=== PATIENT | male | born 1945 | race Caucasian/White ===

== ENCOUNTER 2019-09-15 15:45 | Inpatient (IN) | payer SELFPAY ==
[~2019-09-15] VITALS: Ht 172.7 cm; Wt 65.8 kg
[2019-09-15] MEDS ORDERED: LEVOFLOXACIN 750MG PREMIX 150 ML IV ONE (16:15)
[2019-09-15] MEDS ORDERED: SODIUM CHLORIDE 0.9% 1000ML BAG (SEPSIS BOLUS) IV ONE (16:15)
[2019-09-15] MEDS ORDERED: ACETAMINOPHEN 325MG TABLET PO ONE (16:30)
[2019-09-15 16:38] LABS: HEMATOCRIT. 34.1 % (42.0-52.0); HEMOGLOBIN. 11.8 g/dL (14.0-18.0); MEAN CORPUSCULAR HEMOGLOBIN 29.4 pg (28.0-32.0); MEAN CORPUSCULAR VOLUME 85.1 fL (80.0-94.0); MEAN PLATELET VOLUME 8.8 fl (7.4-10.4); PLATELET 81 x1000/uL (130-400); RED CELL DISTRIBUTION WIDTH 17.9 % (11.6-14.6)
[2019-09-15 16:44] LABS: CHLORIDE 102 mEq/L (98-107)
[2019-09-15 16:45] LABS: INR 0.9; PROTHROMBIN TIME 9.8 sec (9.6-11.0)
[2019-09-15 16:49] LABS: CLARITY URINE CLOUDY (CLEAR); COLOR URINE YELLOW (YELLOW); KETONES URINE NEGATIVE (NEGATIVE); LEUKOCYTE ESTERASE URINE 3+ (NEGATIVE); NITRITE URINE NEGATIVE (NEGATIVE); OCCULT BLOOD URINE 3+ (NEGATIVE); PH URINE 5.5 (4.5-8.0); PROTEIN URINE 2+ (NEGATIVE); SPECIFIC GRAVITY URINE 1.014 (1.005-1.030)
[2019-09-15 17:54] LABS: PLATELET ESTIMATE DECREASED
[2019-09-15] MEDS ORDERED: POTASSIUM CHLORIDE 20MEQ TABLET SR PO ONE (18:30)
[2019-09-15] MEDS ORDERED: NOREPINEPHRINE 4 MG in DEXT 5% WATER 246 ML IV ONE (20:30)
[2019-09-15] MEDS ORDERED: DOCUSATE SODIUM 100MG CAPSULE PO PRN (20:45)
[2019-09-15] MEDS ORDERED: CLONIDINE 0.1MG TABLET PO PRN (20:45)
[2019-09-15] MEDS ORDERED: DEXTROSE 50% WATER 50ML SYRINGE IV PRN (20:45)
[2019-09-15] MEDS ORDERED: LEVOFLOXACIN 500MG PREMIX 100 ML IV SCH (20:45)
[2019-09-15] MEDS ORDERED: IPRATROPIUM/ALBUTEROL 0.5-3(2.5)MG/3ML NEB NEB PRN (20:45)
[2019-09-15] MEDS ORDERED: VASOPRESSIN 10 UNIT in SODIUM CHLORIDE 0.9% 99.5 ML IV PRN (20:45)
[2019-09-15] MEDS ORDERED: GUAIFENESIN 200MG/10ML SUGAR FREE UDC PO PRN (20:45)
[2019-09-15] MEDS ORDERED: CEFEPIME 1,000 MG in DEXTROSE 5% WATER 50 ML IV SCH (20:45)
[2019-09-15] MEDS ORDERED: NITROGLYCERIN 0.4MG TABLET SL SL PRN (20:45)
[2019-09-15] MEDS ORDERED: KETOROLAC 15MG/ML VIAL IV PRN (20:45)
[2019-09-15] MEDS ORDERED: ONDANSETRON HCL 4MG/2ML INJ IV PRN (20:45)
[2019-09-15] MEDS ORDERED: NOREPINEPHRINE 4MG/250ML PMX 250 ML IV ONE (20:45)
[2019-09-15] MEDS ORDERED: MAGNESIUM/ALUMINUM HYDROXIDE/SIMETHICONE 30ML UDC PO PRN (20:45)
[2019-09-15 22:00] LABS: *BARBITURATES SCREEN URINE NEGATIVE (NEGATIVE)
[2019-09-15] MEDS ORDERED: VANCOMYCIN 1 G PREMIX 200 ML IV SCH (22:00)
[2019-09-15] MEDS ORDERED: NOREPINEPHRINE 4MG/250ML PMX 250 ML IV PRN (22:00)
[2019-09-15 22:01] LABS: *AMPHETAMINES SCREEN URINE NEGATIVE (NEGATIVE); *BENZODIAZEPINES SCREEN URINE NEGATIVE (NEGATIVE); *COCAINE SCREEN URINE NEGATIVE (NEGATIVE); METHADONE URINE SCREEN NEGATIVE (NEGATIVE); OPIATES URINE SCREEN NEGATIVE (NEGATIVE)
[2019-09-15 22:02] LABS: CANNABINOID URINE SCREEN NEGATIVE (NEGATIVE); PHENCYCLIDINE URINE SCREEN NEGATIVE (NEGATIVE)
[2019-09-15 22:15] LABS: T4 FREE 1.22 ng/dL (0.76-1.46)
[2019-09-15 22:40] LABS: VITAMIN B12 SERUM 255 pg/mL (211-911)
[2019-09-15 22:44] LABS: CREATINE KINASE 451 IU/L (39-308)
[2019-09-15 22:45] LABS: FOLIC ACID (FOLATE) SERUM > 20.00 ng/mL (>5.38)
[2019-09-15 23:07] VITALS: BP 94/51
[2019-09-15 23:12] VITALS: BP 95/50
[2019-09-15 23:26] VITALS: BP 110/65
[2019-09-15] MEDS ORDERED: NOREPINEPHRINE 4 MG in DEXTROSE 5% WATER 250 ML IV PRN (23:30)
[2019-09-15 23:41] VITALS: BP 113/65
[2019-09-15 23:56] VITALS: BP 111/65
[2019-09-16] VITALS (63 sets, daily range): BP systolic 94–168; BP diastolic 25–125
[2019-09-16] MEDS ORDERED: FILGRASTIM-TBO 300 MCG/0.5 ML SYRINGE SQ SCH
[2019-09-16] MEDS ORDERED: SODIUM CHLORIDE 0.9% 1,000 ML IV NR
[2019-09-16] MEDS ORDERED: POTASSIUM CHLORIDE 20MEQ TABLET SR PO NR
[2019-09-16] MEDS: CEFEPIME 1,000 MG in DEXTROSE 5% WATER 50 ML IV SCH ×3 (00:25→23:27)
[2019-09-16] MEDS ORDERED: PHENYLEPHRINE 40 MG in DEXT 5% WATER 246 ML IV PRN (00:45)
[2019-09-16] MEDS: BLOOD SUGAR DIAGNOSTIC STRIP TEST SCH ×5 (00:55→20:15)
[2019-09-16] MEDS: SODIUM CHLORIDE 0.9% 1,000 ML IV SCH ×4 (02:05→21:04)
[2019-09-16] MEDS: OSELTAMIVIR 75MG CAPSULE PO SCH ×3 (02:05→20:14)
[2019-09-16] MEDS ORDERED: KCL 20MEQ/100ML PREMIX 100 ML IV NR (04:00)
[2019-09-16] MEDS ORDERED: VANCOMYCIN 1250MG in DEXTROSE 5% WATER 250ML IV SCH (06:00)
[2019-09-16 06:10] LABS: HEMATOCRIT. 27.7 % (42.0-52.0); HEMOGLOBIN. 9.6 g/dL (14.0-18.0); MEAN CORPUSCULAR HEMOGLOBIN 29.8 pg (28.0-32.0); MEAN CORPUSCULAR VOLUME 86.3 fL (80.0-94.0); MEAN PLATELET VOLUME 9.2 fl (7.4-10.4); PLATELET 68 x1000/uL (130-400); RED BLOOD CELL COUNT 3.21 mill/uL (4.7-6.1); RED CELL DISTRIBUTION WIDTH 17.9 % (11.6-14.6)
[2019-09-16 06:44] LABS: CHLORIDE 110 mEq/L (98-107)
[2019-09-16 06:55] LABS: CREATINE KINASE 369 IU/L (39-308)
[2019-09-16 06:58] LABS: CREATINE KINASE MB FRACTION 1.8 ng/mL (0.5-3.6)
[2019-09-16] MEDS: INSULIN LISPRO 100 UNITS/ML SUBCUT SCH ×5 (07:55→20:15)
[2019-09-16 08:31] LABS: PLATELET ESTIMATE DECREASED
[2019-09-16] MEDS: ASCORBIC ACID 500 MG TABLET PO SCH ×2 (08:31→20:14)
[2019-09-16] MEDS: FAMOTIDINE 20MG TABLET PO SCH ×2 (08:31→20:15)
[2019-09-16] MEDS: ZINC SULFATE 220 MG ( 50 ) CAPSULE PO SCH (08:31)
[2019-09-16] MEDS: ENOXAPARIN 40MG/0.4ML SYR SUBCUT SCH (08:33)
[2019-09-16] MEDS: ZOLPIDEM TARTRATE 5MG TABLET PO PRN (20:15)
[2019-09-17] VITALS (45 sets, daily range): BP systolic 122–193; BP diastolic 67–111
[2019-09-17] MEDS: ACETAMINOPHEN 325MG TABLET PO PRN ×2 (02:53→23:32)
[2019-09-17] MEDS: SODIUM CHLORIDE 0.9% 1,000 ML IV SCH ×4 (03:36→23:58)
[2019-09-17 05:52] LABS: BASOPHILS % 0.2 % (0.0-2.0); EOSINOPHILS % 1.2 % (0.0-5.0); HEMATOCRIT. 27.9 % (42.0-52.0); HEMOGLOBIN. 9.5 g/dL (14.0-18.0); LYMPHOCYTES % 10.3 % (20.0-50.0); MEAN CORPUSCULAR HEMOGLOBIN 29.4 pg (28.0-32.0); MEAN PLATELET VOLUME 9.1 fl (7.4-10.4); MONOCYTES % 3.1 % (2.0-8.0); NEUTROPHILS % 85.2 % (40.0-76.0); PLATELET 75 x1000/uL (130-400); RED BLOOD CELL COUNT 3.24 mill/uL (4.7-6.1); RED CELL DISTRIBUTION WIDTH 18.4 % (11.6-14.6)
[2019-09-17 06:13] LABS: CHLORIDE 115 mEq/L (98-107)
[2019-09-17] MEDS ORDERED: POTASSIUM CHLORIDE 20MEQ/PACKET PO SCH (07:00)
[2019-09-17 07:19] LABS: PHOSPHORUS 2.2 mg/dL (2.5-4.9)
[2019-09-17] MEDS: BLOOD SUGAR DIAGNOSTIC STRIP TEST SCH ×4 (07:50→21:00)
[2019-09-17] MEDS: INSULIN LISPRO 100 UNITS/ML SUBCUT SCH ×4 (08:20→21:00)
[2019-09-17] MEDS: ENOXAPARIN 40MG/0.4ML SYR SUBCUT SCH (09:00)
[2019-09-17] MEDS ORDERED: KCL 20MEQ/100ML PREMIX 100 ML IV SCH (09:00)
[2019-09-17] MEDS: ASCORBIC ACID 500 MG TABLET PO SCH ×2 (09:15→21:52)
[2019-09-17] MEDS: FAMOTIDINE 20MG TABLET PO SCH ×2 (09:16→21:51)
[2019-09-17] MEDS: ZINC SULFATE 220 MG ( 50 ) CAPSULE PO SCH (09:16)
[2019-09-17] MEDS: OSELTAMIVIR 75MG CAPSULE PO SCH ×2 (09:16→21:51)
[2019-09-17] MEDS ORDERED: POTASSIUM PHOS,M-BASIC-D-BASIC 20 MMOL in DEXT 5% WATER 243.3333 ML IV NR (11:00)
[2019-09-17] MEDS: CEFEPIME 1,000 MG in DEXTROSE 5% WATER 50 ML IV SCH ×2 (12:31→23:59)
[2019-09-17] MEDS ORDERED: DIATR MEGLU/DIATRIZOATE SOLN 30ML PO SCH (13:00)
[2019-09-17] MEDS: ZOLPIDEM TARTRATE 5MG TABLET PO PRN (21:52)
[2019-09-17] MEDS ORDERED: IOHEXOL-300 100 ML BOTTLE ONE (22:43)
[2019-09-18] VITALS (30 sets, daily range): BP systolic 107–145; BP diastolic 53–84
[2019-09-18] MEDS ORDERED: SODIUM CHLORIDE 0.9% 1,000 ML IV NR (01:45)
[2019-09-18] MEDS: DILTIAZEM HCL 30MG TABLET PO SCH ×4 (03:09→21:12)
[2019-09-18 05:19] LABS: HEMOGLOBIN. 10.6 g/dL (14.0-18.0); MEAN CORPUSCULAR HEMOGLOBIN 29.3 pg (28.0-32.0); MEAN CORPUSCULAR VOLUME 85.8 fL (80.0-94.0); MEAN PLATELET VOLUME 8.7 fl (7.4-10.4); PLATELET 78 x1000/uL (130-400); RED BLOOD CELL COUNT 3.61 mill/uL (4.7-6.1); RED CELL DISTRIBUTION WIDTH 18.2 % (11.6-14.6)
[2019-09-18 05:28] LABS: CHLORIDE 113 mEq/L (98-107)
[2019-09-18 05:34] LABS: PHOSPHORUS 2.4 mg/dL (2.5-4.9)
[2019-09-18] MEDS: SODIUM CHLORIDE 0.9% 1,000 ML IV SCH ×3 (06:11→19:54)
[2019-09-18] MEDS: INSULIN LISPRO 100 UNITS/ML SUBCUT SCH ×4 (07:27→21:00)
[2019-09-18] MEDS: BLOOD SUGAR DIAGNOSTIC STRIP TEST SCH ×4 (07:27→21:11)
[2019-09-18 07:31] LABS: PLATELET ESTIMATE DECREASED
[2019-09-18] MEDS: ASCORBIC ACID 500 MG TABLET PO SCH ×2 (08:14→21:12)
[2019-09-18] MEDS: FAMOTIDINE 20MG TABLET PO SCH ×2 (08:14→21:12)
[2019-09-18] MEDS: OSELTAMIVIR 75MG CAPSULE PO SCH (08:14)
[2019-09-18] MEDS: ZINC SULFATE 220 MG ( 50 ) CAPSULE PO SCH (08:14)
[2019-09-18] MEDS ORDERED: POTASSIUM CHLORIDE 20MEQ TABLET SR PO SCH (08:15)
[2019-09-18] MEDS: ENOXAPARIN 40MG/0.4ML SYR SUBCUT SCH (08:47)
[2019-09-18] MEDS ORDERED: POTASSIUM PHOS,M-BASIC-D-BASIC 30 MMOL in DEXT 5% WATER 500 ML IV SCH (10:00)
[2019-09-18] MEDS: CEFEPIME 1,000 MG in DEXTROSE 5% WATER 50 ML IV SCH (11:11)
[2019-09-18] MEDS ORDERED: MAGNESIUM 2 G PREMIX 50 ML IV SCH (11:30)
[2019-09-18 13:06] LABS: PARVOVIRUS B19 HUMAN IGG 1.7 index (0.0-0.8); PARVOVIRUS B19 HUMAN IGM 0.3 index (0.0-0.8)
[2019-09-18] MEDS: METRONIDAZOLE 500MG TABLET PO SCH ×2 (14:57→21:12)
[2019-09-19] VITALS (23 sets, daily range): BP systolic 75–162; BP diastolic 45–94
[2019-09-19] MEDS: CEFEPIME 1,000 MG in DEXTROSE 5% WATER 50 ML IV SCH ×2 (00:14→12:28)
[2019-09-19] MEDS: DILTIAZEM HCL 30MG TABLET PO SCH ×4 (02:51→21:45)
[2019-09-19] MEDS: SODIUM CHLORIDE 0.9% 1,000 ML IV SCH ×4 (03:03→18:14)
[2019-09-19 05:35] LABS: BASOPHILS % 0.3 % (0.0-2.0); EOSINOPHILS % 2.1 % (0.0-5.0); HEMATOCRIT. 32.9 % (42.0-52.0); HEMOGLOBIN. 11.1 g/dL (14.0-18.0); LYMPHOCYTES % 7.6 % (20.0-50.0); MEAN CORPUSCULAR HEMOGLOBIN 28.9 pg (28.0-32.0); MEAN CORPUSCULAR VOLUME 85.5 fL (80.0-94.0); MONOCYTES % 2.4 % (2.0-8.0); NEUTROPHILS % 87.6 % (40.0-76.0); PLATELET 100 x1000/uL (130-400); RED BLOOD CELL COUNT 3.85 mill/uL (4.7-6.1); RED CELL DISTRIBUTION WIDTH 18.4 % (11.6-14.6)
[2019-09-19 05:47] LABS: CHLORIDE 112 mEq/L (98-107)
[2019-09-19 06:05] LABS: PHOSPHORUS 2.7 mg/dL (2.5-4.9)
[2019-09-19] MEDS: METRONIDAZOLE 500MG TABLET PO SCH ×3 (06:41→21:45)
[2019-09-19] MEDS: ZINC SULFATE 220 MG ( 50 ) CAPSULE PO SCH (08:03)
[2019-09-19] MEDS: ASCORBIC ACID 500 MG TABLET PO SCH ×2 (08:04→21:45)
[2019-09-19] MEDS: FAMOTIDINE 20MG TABLET PO SCH ×2 (08:04→21:45)
[2019-09-19] MEDS: ENOXAPARIN 40MG/0.4ML SYR SUBCUT SCH (08:04)
[2019-09-19] MEDS: INSULIN LISPRO 100 UNITS/ML SUBCUT SCH ×4 (08:13→21:00)
[2019-09-19] MEDS: BLOOD SUGAR DIAGNOSTIC STRIP TEST SCH ×4 (08:13→21:45)
[2019-09-19] MEDS ORDERED: POTASSIUM CHLORIDE 20MEQ TABLET SR PO NR (10:15)
[2019-09-19] MEDS ORDERED: LIDOCAINE HCL 1% 20ML VIAL (Pyxis) INJ ONE (11:56)
[2019-09-19] MEDS ORDERED: SODIUM BICARBONATE 4% (2.4MEQ) 5ML VIAL IV ONE (11:56)
[2019-09-20] VITALS: BP 140/63
[2019-09-20] MEDS: CEFEPIME 1,000 MG in DEXTROSE 5% WATER 50 ML IV SCH ×2 (00:49→15:29)
[2019-09-20] MEDS: ZOLPIDEM TARTRATE 5MG TABLET PO PRN (00:52)
[2019-09-20] MEDS: DILTIAZEM HCL 30MG TABLET PO SCH ×3 (03:13→15:29)
[2019-09-20 04:00] VITALS: BP 144/81
[2019-09-20] MEDS: SODIUM CHLORIDE 0.9% 1,000 ML IV SCH ×3 (05:31→17:42)
[2019-09-20] MEDS: METRONIDAZOLE 500MG TABLET PO SCH ×2 (06:10→14:06)
[2019-09-20 08:00] VITALS: BP 132/84
[2019-09-20] MEDS: INSULIN LISPRO 100 UNITS/ML SUBCUT SCH ×3 (08:10→17:41)
[2019-09-20] MEDS: BLOOD SUGAR DIAGNOSTIC STRIP TEST SCH ×3 (08:16→17:41)
[2019-09-20] MEDS: ENOXAPARIN 40MG/0.4ML SYR SUBCUT SCH (09:00)
[2019-09-20] MEDS: ZINC SULFATE 220 MG ( 50 ) CAPSULE PO SCH (10:00)
[2019-09-20] MEDS: ASCORBIC ACID 500 MG TABLET PO SCH (10:00)
[2019-09-20] MEDS: FAMOTIDINE 20MG TABLET PO SCH (10:00)
[2019-09-20 11:54] VITALS: BP 118/74
[2019-09-20 12:00] VITALS: BP 111/75
[2019-09-20 16:00] VITALS: BP 118/74
== END 2019-09-20 18:48 | disposition home or self-care (01) | DRG 720 ==
LOC: ER 15:45 → CVICU 20:28 → ENRESERV 22:10 → 7WST 09-19 22:58
PROVIDERS: ADMIT Internal Medicine; ATTEND Internal Medicine
PROC: 0F9130Z Drainage of Right Lobe Liver with Drainage Device, Percutaneous Approach (ICD-10-PCS; principal; 2019-09-19)
DX: A41.59 Other Gram-negative sepsis (principal); R65.21 Severe sepsis with septic shock; K75.0 Abscess of liver; D61.818 Other pancytopenia; E44.0 Moderate protein-calorie malnutrition; G92 Toxic encephalopathy; D63.8 Anemia in other chronic diseases classified elsewhere; E11.9 Type 2 diabetes mellitus without complications; E87.1 Hypo-osmolality and hyponatremia; E87.6 Hypokalemia; K02.9 Dental caries, unspecified; N39.0 Urinary tract infection, site not specified; Z51.5 Encounter for palliative care; Z79.4 Long term (current) use of insulin; Z68.22 Body mass index [BMI] 22.0-22.9, adult
CPT/HCPCS: 36415; 71045; 74177; 76942; 80048; 80061; 80305; 81003; 82550; 82553; 82607; 82746; 82962; 83036; 83540; 83550; 83605; 83735; 83880; 84100; 84145; 84439; 84443; 84484; 86747; 87075; 87077; 87186; 87449; 87804; 92610; 93005; 93306; 93970; 94640; 96361; 96365; 96375; 97162; 97167; 97530; 99291; C1725; C1729; J0692; J1442; J1885; J1956; J3370; J3475; J3480; J3490; J7030; J7060; J7620; Q9967

== ENCOUNTER 2019-10-26 10:51 | Inpatient (IN) | payer MEDICAID, OTHER ==
[~2019-10-26] VITALS: Ht 153.2 cm; Wt 54.9 kg
[2019-10-26 13:08] LABS: HEMOGLOBIN. 11.5 g/dL (14.0-18.0); MEAN CORPUSCULAR HEMOGLOBIN 29.2 pg (28.0-32.0); MEAN CORPUSCULAR VOLUME 86.5 fL (80.0-94.0); MEAN PLATELET VOLUME 8.5 fl (7.4-10.4); PLATELET 148 x1000/uL (130-400); RED BLOOD CELL COUNT 3.93 mill/uL (4.7-6.1); RED CELL DISTRIBUTION WIDTH 17.7 % (11.6-14.6)
[2019-10-26 13:13] LABS: PROTHROMBIN TIME 10.1 sec (9.6-11.0)
[2019-10-26 13:16] LABS: CHLORIDE 108 mEq/L (98-107)
[2019-10-26 13:30] LABS: PLATELET ESTIMATE NORMAL
[2019-10-26] MEDS ORDERED: ACETAMINOPHEN 650MG/20.3ML UDC GT PRN (17:30)
[2019-10-26] MEDS ORDERED: MAGNESIUM/ALUMINUM HYDROXIDE/SIMETHICONE 30ML UDC PO PRN (17:30)
[2019-10-26] MEDS ORDERED: GUAIFENESIN 200MG/10ML SUGAR FREE UDC PO PRN (17:30)
[2019-10-26] MEDS ORDERED: ACETAMINOPHEN 325MG TABLET PO PRN (17:30)
[2019-10-26] MEDS ORDERED: ONDANSETRON HCL 4MG/2ML INJ IV PRN (17:30)
[2019-10-26] MEDS ORDERED: CLONIDINE 0.1MG TABLET PO PRN (17:30)
[2019-10-26] MEDS ORDERED: ACETAMINOPHEN 650MG SUPP PR PRN (17:30)
[2019-10-26] MEDS ORDERED: IPRATROPIUM/ALBUTEROL 0.5-3(2.5)MG/3ML NEB HHN PRN (17:30)
[2019-10-26] MEDS ORDERED: NA PHOS,M-B/NA PHOS,DI-BA ENEMA 118ML PR PRN (17:30)
[2019-10-26] MEDS ORDERED: DIPHENHYDRAMINE 50MG/ML VIAL IV PRN (17:30)
[2019-10-26] MEDS ORDERED: DOCUSATE SODIUM 100MG CAPSULE PO PRN (17:30)
[2019-10-26] MEDS ORDERED: HYDROCODONE/ACETAMINOPHEN 5/325MG TABLET PO PRN (17:30)
[2019-10-26] MEDS ORDERED: DEXTROSE 50% WATER 50ML SYRINGE IV PRN (17:45)
[2019-10-26] MEDS ORDERED: INSULIN LISPRO 100 UNITS/ML SUBCUT SCH (18:20)
[2019-10-26] MEDS ORDERED: ENOXAPARIN 40MG/0.4ML SYR SUBCUT SCH (19:00)
[2019-10-26] MEDS ORDERED: BLOOD SUGAR DIAGNOSTIC STRIP TEST SCH (19:00)
[2019-10-26 22:00] VITALS: BP 157/61
[2019-10-27] VITALS: BP 145/70
[2019-10-27 04:00] VITALS: BP 127/76
[2019-10-27] MEDS: ENOXAPARIN 40MG/0.4ML SYR SUBCUT SCH ×2 (06:10→21:34)
[2019-10-27 06:52] LABS: HEMATOCRIT. 31.1 % (42.0-52.0); HEMOGLOBIN. 10.9 g/dL (14.0-18.0); MEAN CORPUSCULAR HEMOGLOBIN 29.6 pg (28.0-32.0); MEAN CORPUSCULAR VOLUME 84.7 fL (80.0-94.0); PLATELET 205 x1000/uL (130-400); RED BLOOD CELL COUNT 3.67 mill/uL (4.7-6.1); RED CELL DISTRIBUTION WIDTH 17.8 % (11.6-14.6)
[2019-10-27 07:21] LABS: CHLORIDE 111 mEq/L (98-107)
[2019-10-27 07:35] LABS: LDL CHOLESTEROL 130 mg/dL (5-100)
[2019-10-27 07:37] LABS: HDL CHOLESTEROL 65 mg/dL (40-59)
[2019-10-27 08:00] VITALS: BP 143/74
[2019-10-27] MEDS: SODIUM CHLORIDE 0.9% INJ 3ML FLUSH IVF SCH ×2 (10:17→14:33)
[2019-10-27 12:00] VITALS: BP 140/76
[2019-10-27 16:00] VITALS: BP 141/78
[2019-10-27 17:12] LABS: PLATELET ESTIMATE NORMAL
[2019-10-27 20:00] VITALS: BP 135/68
[2019-10-28] VITALS: BP 155/80
[2019-10-28 08:00] VITALS: BP 136/71
[2019-10-28] MEDS: SODIUM CHLORIDE 0.9% INJ 3ML FLUSH IVF SCH ×3 (08:51→21:23)
[2019-10-28 12:00] VITALS: BP 134/77
[2019-10-28 16:00] VITALS: BP 126/76
[2019-10-28 20:00] VITALS: BP 112/73
[2019-10-28] MEDS: ENOXAPARIN 40MG/0.4ML SYR SUBCUT SCH (20:40)
[2019-10-28] MEDS ORDERED: DEXTROSE 50% WATER 50ML SYRINGE IV PRN (22:30)
[2019-10-29] VITALS: BP 107/69
[2019-10-29 04:00] VITALS: BP 118/70
[2019-10-29] MEDS: SODIUM CHLORIDE 0.9% INJ 3ML FLUSH IVF SCH (06:30)
[2019-10-29] MEDS: BLOOD SUGAR DIAGNOSTIC STRIP TEST SCH ×2 (07:21→11:52)
[2019-10-29] MEDS: INSULIN LISPRO 100 UNITS/ML SUBCUT SCH ×2 (07:50→11:55)
[2019-10-29 08:00] VITALS: BP 134/81
[2019-10-29] MEDS ORDERED: SODIUM BICARBONATE 4% (2.4MEQ) 5ML VIAL IV ONE (09:44)
[2019-10-29] MEDS ORDERED: LIDOCAINE HCL 1% 20ML VIAL (Pyxis) INJ ONE (09:44)
[2019-10-29 12:00] VITALS: BP 144/80
[2019-10-29 15:57] VITALS: BP 138/76
[2019-10-29 17:05] VITALS: BP 138/76
== END 2019-10-29 18:35 | disposition home or self-care (01) | DRG 279 ==
LOC: ER 10:51 → 6EST 17:26 → ENRESERV 19:24
PROVIDERS: ADMIT Family Medicine; ATTEND Family Medicine
PROC: 0FP0X0Z Removal of Drainage Device from Liver, External Approach (ICD-10-PCS; principal; 2019-10-29)
DX: K75.0 Abscess of liver (principal); D72.1 Eosinophilia; B96.1 Klebsiella pneumoniae [K. pneumoniae] as the cause of diseases classified elsewhere; N28.1 Cyst of kidney, acquired; E11.9 Type 2 diabetes mellitus without complications; I10 Essential (primary) hypertension; N40.0 Benign prostatic hyperplasia without lower urinary tract symptoms; Z87.440 Personal history of urinary (tract) infections; Z88.8 Allergy status to other drugs, medicaments and biological substances
CPT/HCPCS: 10030; 36415; 74176; 80053; 80061; 82962; 85025; 99285; J1650; J3490

== ENCOUNTER 2020-05-24 12:13 | Inpatient (IN) | payer MEDICAID ==
[~2020-05-24] VITALS: Ht 172.7 cm; Wt 81.7 kg
[2020-05-24] MEDS ORDERED: ONDANSETRON HCL 4MG/2ML INJ IV STA (12:51)
[2020-05-24] MEDS ORDERED: MORPHINE SULFATE 4 MG/ML CPJ (NOT FOR IM USE) IV STA (12:51)
[2020-05-24 13:22] LABS: BASOPHILS % 0.6 % (0.0-2.0); HEMATOCRIT. 36.9 % (42.0-52.0); HEMOGLOBIN. 12.8 g/dL (14.0-18.0); LYMPHOCYTES % 21.1 % (20.0-50.0); MEAN CORPUSCULAR VOLUME 83.7 fL (80.0-94.0); MEAN PLATELET VOLUME 7.8 fl (7.4-10.4); MONOCYTES % 6.4 % (2.0-8.0); NEUTROPHILS % 67.9 % (40.0-76.0); PLATELET 223 x1000/uL (130-400); RED BLOOD CELL COUNT 4.41 mill/uL (4.7-6.1); RED CELL DISTRIBUTION WIDTH 14.5 % (11.6-14.6)
[2020-05-24 13:29] LABS: CHLORIDE 104 mEq/L (98-107)
[2020-05-24 13:31] LABS: PROTHROMBIN TIME 10.2 sec (9.6-11.0)
[2020-05-24 15:58] LABS: KETONES URINE 1+ (NEGATIVE); LEUKOCYTE ESTERASE URINE NEGATIVE (NEGATIVE); NITRITE URINE NEGATIVE (NEGATIVE); OCCULT BLOOD URINE 1+ (NEGATIVE); PH URINE 5.5 (4.5-8.0); PROTEIN URINE 1+ (NEGATIVE); SPECIFIC GRAVITY URINE 1.024 (1.005-1.030)
[2020-05-24 16:01] LABS: CLARITY URINE SLIGHTLY HAZY (CLEAR); COLOR URINE DARK YELLOW (YELLOW)
[2020-05-24 20:45] VITALS: BP 178/81
[2020-05-24] MEDS ORDERED: CLONIDINE 0.1MG TABLET PO PRN (22:30)
[2020-05-24] MEDS ORDERED: DEXTROSE 50% WATER 50ML SYRINGE IV PRN (22:30)
[2020-05-24] MEDS ORDERED: MORPHINE SULFATE 2 MG/ML CPJ (NOT FOR IM USE) IV PRN (22:30)
[2020-05-24] MEDS ORDERED: ONDANSETRON HCL 4MG/2ML INJ IV PRN (22:30)
[2020-05-24] MEDS ORDERED: LEVOFLOXACIN 250MG PREMIX 50 ML IV SCH (23:30)
[2020-05-25] VITALS: BP 141/88
[2020-05-25 04:00] VITALS: BP 130/75
[2020-05-25] MEDS: DEXT 5%/0.45% NACL KCL 20MEQ/L 1,000 ML IV SCH ×3 (04:20→16:53)
[2020-05-25] MEDS: INSULIN LISPRO 100 UNITS/ML SUBCUT SCH ×3 (07:47→17:31)
[2020-05-25] MEDS: BLOOD SUGAR DIAGNOSTIC STRIP TEST SCH ×3 (07:47→17:31)
[2020-05-25 08:00] VITALS: BP 128/75
[2020-05-25] MEDS ORDERED: TAMSULOSIN HCL 0.4MG SR CAPSULE PO SCH (09:00)
[2020-05-25] MEDS ORDERED: AMLODIPINE 10MG TABLET PO SCH (09:00)
[2020-05-25] MEDS ORDERED: PANTOPRAZOLE SODIUM 40 MG/VIAL IV SCH (09:00)
[2020-05-25] MEDS: METRONIDAZOLE 500 MG PREMIX 100 ML IV SCH ×2 (10:26→17:05)
[2020-05-25 12:00] VITALS: BP 117/66
[2020-05-25 16:00] VITALS: BP 126/62
[2020-05-25] MEDS ORDERED: BISACODYL 10MG SUPP PR SCH (17:00)
[2020-05-25 17:33] VITALS: BP 117/66
[2020-05-25] MEDS ORDERED: LEVOFLOXACIN 250MG PREMIX 50 ML IV SCH (21:00)
== END 2020-05-25 19:50 | disposition home or self-care (01) ==
LOC: ER 12:19 → ENRESERV 19:46 → 6EST 20:39
PROVIDERS: ADMIT Internal Medicine; ATTEND Internal Medicine
DX: K80.00 Calculus of gallbladder with acute cholecystitis without obstruction (principal); N40.0 Benign prostatic hyperplasia without lower urinary tract symptoms; K59.00 Constipation, unspecified; I10 Essential (primary) hypertension; E11.9 Type 2 diabetes mellitus without complications; K40.90 Unilateral inguinal hernia, without obstruction or gangrene, not specified as recurrent; D64.9 Anemia, unspecified
CPT/HCPCS: 36415; 74176; 76705; 80053; 81003; 82962; 83036; 85025; 93005; 96374; 99285; C9113; J1956; J2270; J2405; J3490

== ENCOUNTER 2021-01-25 15:08 | Emergency (ER) | payer MEDICAID ==
[~2021-01-25] VITALS: Ht 170.2 cm; Wt 73.0 kg
[2021-01-25] MEDS ORDERED: VALACYCLOVIR HCL 500MG TABLET PO SCH (16:15)
[2021-01-25] MEDS ORDERED: HYDROCODONE/ACETAMINOPHEN 5/325MG TABLET PO ONE (16:45)
[2021-01-25] MEDS ORDERED: VALA10002 MT (17:27)
[2021-01-25] MEDS ORDERED: T3 PO (17:28)
[2021-01-25] MEDS ORDERED: GABA100C MT (17:29)
[2021-01-25 17:57] VITALS: BP 130/83
== END 2021-01-25 18:04 | disposition home or self-care (01) ==
LOC: ER 15:08
DX: B01.9 Varicella without complication (principal); Z98.890 Other specified postprocedural states; Z91.041 Radiographic dye allergy status
CPT/HCPCS: 93005; 99283

== ENCOUNTER 2021-03-01 11:14 | Emergency (ER) | payer MEDICAID ==
[~2021-03-01] VITALS: Ht 175.3 cm; Wt 73.0 kg
[~2021-03-01 11:14] MED LIST: GABA100C MT; T3 PO; VALA10002 MT
[2021-03-01] MEDS ORDERED: ACETAMINOPHEN 325MG TABLET PO STA (11:41)
[2021-03-01 12:17] LABS: HEMATOCRIT. 38.7 % (42.0-52.0); HEMOGLOBIN. 13.3 g/dL (14.0-18.0); MEAN CORPUSCULAR HEMOGLOBIN 28.3 pg (28.0-32.0); MEAN CORPUSCULAR VOLUME 82.5 fL (80.0-94.0); MEAN PLATELET VOLUME 7.9 fl (7.4-10.4); PLATELET 217 x1000/uL (130-400); RED BLOOD CELL COUNT 4.69 mill/uL (4.7-6.1)
[2021-03-01 12:27] LABS: CHLORIDE 108 mEq/L (98-107)
[2021-03-01 12:39] VITALS: BP 168/82
[2021-03-01 13:04] LABS: PLATELET ESTIMATE NORMAL
[2021-03-01 13:11] LABS: CLARITY URINE CLEAR (CLEAR); COLOR URINE YELLOW (YELLOW); KETONES URINE TRACE (NEGATIVE); LEUKOCYTE ESTERASE URINE 1+ (NEGATIVE); NITRITE URINE NEGATIVE (NEGATIVE); OCCULT BLOOD URINE 1+ (NEGATIVE); PROTEIN URINE NEGATIVE (NEGATIVE); SPECIFIC GRAVITY URINE 1.018 (1.005-1.030); UROBILINOGEN URINE 0.2 E.U./dL (0.2-1.0)
[2021-03-01] MEDS ORDERED: CEPH500T MT (14:55)
[2021-03-01] MEDS ORDERED: IBUP-2028 MT (14:55)
== END 2021-03-01 16:10 | disposition home or self-care (01) ==
LOC: ER 11:14
DX: N39.0 Urinary tract infection, site not specified (principal); R10.31 Right lower quadrant pain; F10.21 Alcohol dependence, in remission; Z91.041 Radiographic dye allergy status
CPT/HCPCS: 36415; 74176; 80053; 81003; 85025; 99285